=== PATIENT | female | born 1980 | race Caucasian/White ===

== ENCOUNTER 2017-10-27 20:04 | Emergency (ER) | payer OTHER ==
[~2017-10-27] VITALS: Ht 162.6 cm; Wt 107.0 kg
[~2017-10-27 20:04] MED LIST: HYDROCODON-ACE1 EA11 PO; NECON1 EACH PO; ZOFRAN ODT4 MG PO
[2017-10-27] MEDS ORDERED: AMBIEN 10 MG TA10 MG PO (20:15)
[2017-10-27] MEDS ORDERED: FLECAINIDE ACET50 M1 PO (20:15)
[2017-10-27] MEDS ORDERED: TOPROL XL25 MG PO (20:15)
[2017-10-27] MEDS ORDERED: OMEPRAZOLE40 MG PO (20:15)
[2017-10-27] MEDS ORDERED: PREDNISONE50 MG PO (20:53)
[2017-10-27] MEDS ORDERED: ROBITUSSIN100 MG/53 PO (20:53)
[2017-10-27] MEDS ORDERED: PROAIR HFA8.5 GM INH (20:53)
[2017-10-27 21:00] VITALS: BP 136/64
== END 2017-10-27 21:02 | disposition short-term general hospital (02) ==
LOC: M.ERS 20:04
DX: J34.89 Other specified disorders of nose and nasal sinuses (principal); K21.9 Gastro-esophageal reflux disease without esophagitis; Z90.49 Acquired absence of other specified parts of digestive tract

== ENCOUNTER 2017-12-21 21:31 | Emergency (ER) | payer OTHER ==
[~2017-12-21] VITALS: Ht 165.1 cm; Wt 107.0 kg
[~2017-12-21 21:31] MED LIST changes: +AMBIEN 10 MG TA10 MG PO; +FLECAINIDE ACET50 M1 PO; +OMEPRAZOLE40 MG PO; +PREDNISONE50 MG PO; +PROAIR HFA8.5 GM INH; +ROBITUSSIN100 MG/53 PO; +TOPROL XL25 MG PO
[2017-12-21] MEDS ORDERED: ZESTRIL5 MG (21:46)
[2017-12-21] MEDS ORDERED: NAPROSYN500 MG PO (22:22)
[2017-12-21 22:36] VITALS: BP 130/70
== END 2017-12-21 22:38 | disposition home or self-care (01) ==
LOC: M.ERS 21:31
DX: S93.492A Sprain of other ligament of left ankle, initial encounter (principal); S80.01XA Contusion of right knee, initial encounter; K21.9 Gastro-esophageal reflux disease without esophagitis; W10.8XXA Fall (on) (from) other stairs and steps, initial encounter; Y93.89 Activity, other specified; Y92.89 Other specified places as the place of occurrence of the external cause; Y99.8 Other external cause status

== ENCOUNTER 2018-06-08 19:52 | Emergency (ER) | payer OTHER ==
[~2018-06-08] VITALS: Ht 165.1 cm; Wt 107.0 kg
[~2018-06-08 19:52] MED LIST changes: +NAPROSYN500 MG PO; +ZESTRIL5 MG
[2018-06-08] MEDS ORDERED: AMBIEN 5 MG TABL5 M1 PO (20:15)
[2018-06-08] MEDS ORDERED: DICLOFENAC SODI75 MG PO (20:15)
[2018-06-08 20:27] LABS: URINE BILIRUBIN NEGATIVE (Negative); URINE BLOOD 2+ (Negative); URINE CLARITY CLEAR; URINE COLOR YELLOW; URINE GLUCOSE-RANDOM NEGATIVE (Negative); URINE KETONES NEGATIVE (Negative); URINE NITRITE-REFLEX NEGATIVE (Negative); URINE PROTEIN NEGATIVE (Negative); URINE SPECIFIC GRAVITY <= 1.005 (1.005-1.030); URINE UROBILINOGEN 0.2 E.U./dl (0.2-1.0)
[2018-06-08 20:28] LABS: URINE LEUKOCYTES-REFLEX 2+ (Negative)
[2018-06-08 20:33] LABS: ABSOLUTE BASOPHILS 0.1 thou/uL (0.0-0.2); ABSOLUTE EOSINOPHILS 0.2 thou/uL (0.0-0.7); ABSOLUTE MONOCYTES 0.7 thou/uL (0.0-1.2); ABSOLUTE NEUTROPHILS 4.3 thou/uL (1.6-8.1); BASOPHILS 0.9 %; EOSINOPHILS 2.7 %; HEMATOCRIT 37.5 % (37.0-47.0); HEMOGLOBIN 12.9 gm/dL (12.0-15.0); LYMPHOCYTES 27.6 %; MCH 31.6 pg (26.0-34.0); MCHC 34.5 g/dL (28.0-37.0); MCV 91.4 fL (80.0-100.0); MONOCYTES 9.3 %; MPV 6.7 fl. (7.2-11.1); NUCLEATED RBCS 0 /100WBC; PLATELET COUNT* 317 thou/uL (150-400); POLYS 59.5 %; RDW-CV 13.4 % (10.5-14.5); WBC 7.2 thou/uL (4.0-11.0)
[2018-06-08 20:41] LABS: SQUAMOUS >10 Many /LPF (0-3)
[2018-06-08 20:41] LABS: CALCIUM 8.7 mg/dL (8.5-10.1); POTASSIUM 3.8 mmol/L (3.5-5.1)
[2018-06-08 20:42] LABS: MUCUS None Seen strn/LPF (None Seen)
[2018-06-08 20:43] LABS: BACTERIA-REFLEX 1-9 Few /HPF (None Seen)
[2018-06-08 20:44] LABS: CASTS None Seen /LPF (None Seen); CRYSTALS None Seen /LPF (None Seen); URINE RBC 0-2 Rare /HPF (0-2)
[2018-06-08 20:46] LABS: ALBUMIN 3.3 g/dL (3.4-5.0); TOTAL BILIRUBIN 0.3 mg/dL (<0.1-1.0); TOTAL PROTEIN 6.9 g/dL (6.4-8.2)
[2018-06-08] MEDS ORDERED: CARAFATE 1 GM TA1 G1 PO (22:36)
[2018-06-08 22:59] VITALS: BP 132/79
[2018-06-08] MEDS ORDERED: BACTRIM DS TAB1 EACH PO (23:01)
--- NOTE | 2018-06-09 16:34 | EKG ---
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
== END 2018-06-08 23:00 | disposition home or self-care (01) ==
LOC: M.ERS 19:52
PROVIDERS: Nurse Practitioner Family
DX: N39.0 Urinary tract infection, site not specified (principal); K21.9 Gastro-esophageal reflux disease without esophagitis; M79.7 Fibromyalgia; Z90.49 Acquired absence of other specified parts of digestive tract; Z88.6 Allergy status to analgesic agent

== ENCOUNTER 2018-08-25 17:17 | Emergency (ER) | payer OTHER ==
[~2018-08-25] VITALS: Ht 165.1 cm; Wt 107.0 kg
[~2018-08-25 17:17] MED LIST changes: +AMBIEN 5 MG TABL5 M1 PO; +BACTRIM DS TAB1 EACH PO; +CARAFATE 1 GM TA1 G1 PO; +DICLOFENAC SODI75 MG PO
[2018-08-25 18:46] LABS: ABSOLUTE BASOPHILS 0.1 thou/uL (0.0-0.2); ABSOLUTE EOSINOPHILS 0.3 thou/uL (0.0-0.7); ABSOLUTE LYMPHOCYTES 1.9 thou/uL (0.8-5.3); ABSOLUTE MONOCYTES 0.7 thou/uL (0.0-1.2); ABSOLUTE NEUTROPHILS 4.1 thou/uL (1.6-8.1); BASOPHILS 1.4 %; EOSINOPHILS 3.9 %; HEMATOCRIT 39.4 % (37.0-47.0); HEMOGLOBIN 13.7 gm/dL (12.0-15.0); MCH 31.3 pg (26.0-34.0); MCHC 34.7 g/dL (28.0-37.0); MCV 90.3 fL (80.0-100.0); MONOCYTES 10.1 %; MPV 6.9 fl. (7.2-11.1); NUCLEATED RBCS 0 /100WBC; PLATELET COUNT* 341 thou/uL (150-400); POLYS 57.6 %; RBC 4.36 mil/uL (4.20-5.00); RDW-CV 13.3 % (10.5-14.5); WBC 7.1 thou/uL (4.0-11.0)
[2018-08-25 18:56] LABS: INR 0.9; PROTIME 9.7 Seconds (9.20-11.50)
[2018-08-25 19:02] LABS: ALBUMIN 3.4 g/dL (3.4-5.0); ALKALINE PHOSPHATASE 60 U/L (46-116); ANION GAP 10 mmol/L (7-16); BUN 14 mg/dL (7-18); CALCIUM 8.4 mg/dL (8.5-10.1); CHLORIDE 106 mmol/L (98-107); CO2 26 mmol/L (21-32); GLUCOSE 100 mg/dL (70-99); POTASSIUM 3.6 mmol/L (3.5-5.1); SGOT 13 U/L (15-37); SGPT 21 U/L (30-65); SODIUM 142 mmol/L (136-145); TOTAL BILIRUBIN 0.2 mg/dL (<0.1-1.0); TOTAL PROTEIN 6.9 g/dL (6.4-8.2); TROPONIN-I LEVEL <0.06 ng/mL (<0.06)
[2018-08-25 19:40] LABS: INFLUENZA A ANTIGEN None Detected (None Detect); INFLUENZA B ANTIGEN None Detected (None Detect)
[2018-08-25] MEDS ORDERED: HYDROCODONE-AP1 EAC6 PO (20:01)
[2018-08-25] MEDS ORDERED: MUCINEX600 MG PO (20:01)
[2018-08-25 20:13] VITALS: BP 122/72
--- NOTE | 2018-08-26 12:39 | EKG ---
[place] [address] ELECTROCARDIOGRAM REPORT Name: ELANA GA Room: [facility]#: [id number] Admission: 08/25/18 Attend Phys: Discharge: 08/25/18 Date of : [birth year] Report #: [id number] THIS REPORT FOR: //name// [facility] ED Test Date: 2018-08-25 Test Time: 17:27:55 Pat Name: ELANA GA Department: Room: Gender: F Hydramatic Mechanic: Demetrice MACK : 1980 Requested By: Chandler Kenyon Order Number: [id number] [id number] MD: Narinder Richey Measurements Intervals [place] Rate: 75 P: 46 HI: 127 QRS: -11 QRSD: 101 T: 62 QT: 401 QTc: 448 Interpretive Statements Sinus rhythm Baseline wander in lead(s) II,III,aVF,V4,V5,V6 Compared to ECG 06/08/2018 20:35:05 No significant changes Electronically Signed On 08-26-2018 12:39:06 CDT by Narinder Richey [email or web address] <ELECTRONICALLY SIGNED> By: Narinder Richey MD, [facility] 08/26/18 1239 1727 1727 Narinder Richey MD, [facility] /EPI
== END 2018-08-25 20:45 | disposition home or self-care (01) ==
LOC: M.ERS 17:17
PROVIDERS: Personal Emergency Response Attendant
DX: J06.9 Acute upper respiratory infection, unspecified (principal); R09.1 Pleurisy; R07.89 Other chest pain; K21.9 Gastro-esophageal reflux disease without esophagitis; M79.7 Fibromyalgia; Z90.49 Acquired absence of other specified parts of digestive tract; Z88.5 Allergy status to narcotic agent

== ENCOUNTER 2018-11-14 22:23 | Emergency (ER) | payer OTHER ==
[~2018-11-14] VITALS: Ht 165.1 cm; Wt 108.9 kg
[~2018-11-14 22:23] MED LIST changes: +HYDROCODONE-AP1 EAC6 PO; +MUCINEX600 MG PO
[2018-11-14 23:29] LABS: ABSOLUTE BASOPHILS 0.1 thou/uL (0.0-0.2); ABSOLUTE EOSINOPHILS 0.3 thou/uL (0.0-0.7); ABSOLUTE LYMPHOCYTES 2.2 thou/uL (0.8-5.3); ABSOLUTE MONOCYTES 0.7 thou/uL (0.0-1.2); ABSOLUTE NEUTROPHILS 2.7 thou/uL (1.6-8.1); BASOPHILS 0.9 %; EOSINOPHILS 5.4 %; HEMATOCRIT 36.9 % (37.0-47.0); HEMOGLOBIN 12.7 gm/dL (12.0-15.0); LYMPHOCYTES 37.3 %; MCH 31.5 pg (26.0-34.0); MCHC 34.5 g/dL (28.0-37.0); MCV 91.1 fL (80.0-100.0); MONOCYTES 11.2 %; MPV 7.4 fl. (7.2-11.1); NUCLEATED RBCS 0 /100WBC; PLATELET COUNT* 284 thou/uL (150-400); POLYS 45.2 %; RBC 4.05 mil/uL (4.20-5.00); RDW-CV 13.8 % (10.5-14.5); WBC 5.9 thou/uL (4.0-11.0)
[2018-11-14 23:35] LABS: ANION GAP 9 mmol/L (7-16); BUN 17 mg/dL (7-18); CALCIUM 8.7 mg/dL (8.5-10.1); CHLORIDE 105 mmol/L (98-107); CO2 27 mmol/L (21-32); CREATININE 1.1 mg/dL (0.6-1.3); GLUCOSE 96 mg/dL (70-99); POTASSIUM 3.7 mmol/L (3.5-5.1); SODIUM 141 mmol/L (136-145)
[2018-11-14 23:47] LABS: ALBUMIN 3.4 g/dL (3.4-5.0); ALKALINE PHOSPHATASE 48 U/L (46-116); SGOT 16 U/L (15-37); SGPT 29 U/L (30-65); TOTAL BILIRUBIN 0.3 mg/dL (<0.1-1.0); TOTAL PROTEIN 6.4 g/dL (6.4-8.2); TROPONIN-I LEVEL <0.06 ng/mL (<0.06)
[2018-11-15 01:10] VITALS: BP 133/67
--- NOTE | 2018-11-15 11:35 | EKG ---
[place] [address] ELECTROCARDIOGRAM REPORT Name: ELANA GA Room: [facility]#: [id number] Admission: 11/14/18 Attend Phys: Discharge: 11/15/18 Date of : [birth year] Report #: [id number] THIS REPORT FOR: //name// [facility] ED Test Date: 2018-11-14 Test Time: 22:32:08 Pat Name: ELANA GA Department: Room: Gender: F Information Receptionist: DUKE : 1980 Requested By: Mary Anne Jay Order Number: [id number] MD: Chucho Barraza Measurements Intervals [place] Rate: 66 P: 35 IA: 147 QRS: -8 QRSD: 119 T: 43 QT: 419 QTc: 439 Interpretive Statements Sinus rhythm Nonspecific intraventricular conduction delay Low voltage, precordial leads Compared to ECG 08/25/2018 17:27:55 Intraventricular conduction delay now present Low QRS voltage now present Electronically Signed On 11-15-2018 11:35:02 CDT by Chucho Barraza [email or web address] <ELECTRONICALLY SIGNED> By: Chucho Barraza MD, [facility] 11/15/18 1135 31 31 Chucho Barraza MD, [facility] /EPI
== END 2018-11-15 01:10 | disposition home or self-care (01) ==
LOC: M.ERS 22:23
PROVIDERS: Physician Assistant
DX: R07.89 Other chest pain (principal); K21.9 Gastro-esophageal reflux disease without esophagitis; M79.7 Fibromyalgia; Z88.5 Allergy status to narcotic agent; Z90.49 Acquired absence of other specified parts of digestive tract

== ENCOUNTER 2018-12-15 13:24 | Emergency (ER) | payer OTHER ==
[~2018-12-15] VITALS: Ht 165.1 cm; Wt 106.6 kg
[2018-12-15] MEDS ORDERED: KEFLEX500 M1 PO (14:18)
[2018-12-15] MEDS ORDERED: NORCO 5-325 TA1 EAC1 PO (14:18)
[2018-12-15 14:30] VITALS: BP 132/80
== END 2018-12-15 14:31 | disposition home or self-care (01) ==
LOC: M.ERS 13:24
DX: S90.812A Abrasion, left foot, initial encounter (principal); W22.09XA Striking against other stationary object, initial encounter; Y93.89 Activity, other specified; Y92.89 Other specified places as the place of occurrence of the external cause; Y99.8 Other external cause status; K21.9 Gastro-esophageal reflux disease without esophagitis; M79.7 Fibromyalgia; Z90.49 Acquired absence of other specified parts of digestive tract; Z88.5 Allergy status to narcotic agent

== ENCOUNTER → 2018-12-29 | Outpatient (CLI) | payer OTHER ==
[~2018-12-29] MED LIST changes: +KEFLEX500 M1 PO; +NORCO 5-325 TA1 EAC1 PO
[2018-12-29 08:06] LABS: ABSOLUTE EOSINOPHILS 0.1 thou/uL (0.0-0.7); ABSOLUTE LYMPHOCYTES 1.3 thou/uL (0.8-5.3); ABSOLUTE MONOCYTES 0.7 thou/uL (0.0-1.2); ABSOLUTE NEUTROPHILS 4.2 thou/uL (1.6-8.1); BASOPHILS 0.7 %; EOSINOPHILS 2.1 %; HEMATOCRIT 42.6 % (37.0-47.0); HEMOGLOBIN 14.8 gm/dL (12.0-15.0); LYMPHOCYTES 20.4 %; MCH 31.3 pg (26.0-34.0); MCHC 34.6 g/dL (28.0-37.0); MCV 90.4 fL (80.0-100.0); MONOCYTES 10.7 %; MPV 7.3 fl. (7.2-11.1); NUCLEATED RBCS 0 /100WBC; PLATELET COUNT* 323 thou/uL (150-400); POLYS 66.1 %; RBC 4.71 mil/uL (4.20-5.00); WBC 6.4 thou/uL (4.0-11.0)
[2018-12-29 08:37] LABS: ALBUMIN 3.9 g/dL (3.4-5.0); CREATININE 0.9 mg/dL (0.6-1.3); POTASSIUM 4.3 mmol/L (3.5-5.1); TOTAL BILIRUBIN 0.5 mg/dL (<0.1-1.0); TOTAL PROTEIN 7.7 g/dL (6.4-8.2)
== END ==
LOC: M.NUC 12-28 12:33
PROVIDERS: Internal Medicine Gastroenterology
DX: K30 Functional dyspepsia (principal); R14.0 Abdominal distension (gaseous)

== ENCOUNTER 2019-04-14 07:28 | Emergency (ER) | payer OTHER ==
[~2019-04-14] VITALS: Ht 162.6 cm; Wt 108.9 kg
[2019-04-14] MEDS ORDERED: LOPRESSOR50 MG PO (07:40)
[2019-04-14] MEDS ORDERED: AMOXICILLIN 50500 MG PO (08:00)
[2019-04-14 08:02] VITALS: BP 149/79
== END 2019-04-14 08:05 | disposition home or self-care (01) ==
LOC: M.ERS 07:28
DX: J40 Bronchitis, not specified as acute or chronic (principal); K21.9 Gastro-esophageal reflux disease without esophagitis; M79.7 Fibromyalgia; Z90.49 Acquired absence of other specified parts of digestive tract; Z88.5 Allergy status to narcotic agent

== ENCOUNTER 2019-04-20 19:23 | Emergency (ER) | payer OTHER ==
[~2019-04-20] VITALS: Ht 162.6 cm; Wt 108.9 kg
[~2019-04-20 19:23] MED LIST changes: +AMOXICILLIN 50500 MG PO; +LOPRESSOR50 MG PO
[2019-04-20 19:44] LABS: URINE BILIRUBIN NEGATIVE (Negative); URINE BLOOD NEGATIVE (Negative); URINE CLARITY CLEAR; URINE COLOR YELLOW; URINE GLUCOSE-RANDOM NEGATIVE (Negative); URINE KETONES NEGATIVE (Negative); URINE LEUKOCYTES-REFLEX NEGATIVE (Negative); URINE NITRITE-REFLEX NEGATIVE (Negative); URINE PROTEIN NEGATIVE (Negative); URINE SPECIFIC GRAVITY <= 1.005 (1.005-1.030); URINE UROBILINOGEN 0.2 E.U./dl (0.2-1.0)
[2019-04-20 20:21] LABS: ABSOLUTE BASOPHILS 0.1 thou/uL (0.0-0.2); ABSOLUTE EOSINOPHILS 0.2 thou/uL (0.0-0.7); ABSOLUTE LYMPHOCYTES 1.9 thou/uL (0.8-5.3); ABSOLUTE MONOCYTES 0.6 thou/uL (0.0-1.2); ABSOLUTE NEUTROPHILS 5.3 thou/uL (1.6-8.1); BASOPHILS 1.2 %; EOSINOPHILS 2.1 %; HEMATOCRIT 39.9 % (37.0-47.0); HEMOGLOBIN 13.8 gm/dL (12.0-15.0); LYMPHOCYTES 23.3 %; MCH 31.3 pg (26.0-34.0); MCHC 34.5 g/dL (28.0-37.0); MCV 90.7 fL (80.0-100.0); MONOCYTES 7.9 %; MPV 6.7 fl. (7.2-11.1); NUCLEATED RBCS 0 /100WBC; PLATELET COUNT* 336 thou/uL (150-400); POLYS 65.5 %; RDW-CV 13.3 % (10.5-14.5); WBC 8.1 thou/uL (4.0-11.0)
[2019-04-20 20:28] LABS: CALCIUM 8.6 mg/dL (8.5-10.1); CREATININE 0.9 mg/dL (0.6-1.3); POTASSIUM 3.9 mmol/L (3.5-5.1)
[2019-04-20 20:33] LABS: ALBUMIN 3.6 g/dL (3.4-5.0); TOTAL BILIRUBIN 0.3 mg/dL (<0.1-1.0); TOTAL PROTEIN 7.2 g/dL (6.4-8.2)
[2019-04-20] MEDS ORDERED: NORCO 5-325 TA1 EAC1 PO (21:03)
[2019-04-20 21:17] VITALS: BP 134/75
--- NOTE | 2019-04-21 13:55 | EKG ---
[place] [address] ELECTROCARDIOGRAM REPORT Name: ELANA GA Room: [facility]#: [id number] Admission: 04/20/19 Attend Phys: Discharge: 04/20/19 Date of : [birth year] Report #: [id number] THIS REPORT FOR: //name// [facility] ED Test Date: 2019-04-20 Test Time: 20:02:51 Pat Name: ELANA GA Department: Room: Gender: F Forensic Accountant: NICKY : 1980 Requested By: Mary Anne Jay Order Number: [id number] MD: Arthur Gaona Measurements Intervals [place] Rate: 83 P: 37 LA: 134 QRS: -14 QRSD: 112 T: 58 QT: 388 QTc: 456 Interpretive Statements Sinus rhythm Borderline intraventricular conduction delay Low voltage, precordial leads Compared to ECG 11/14/2018 22:32:08 No significant changes Electronically Signed On 04-21-2019 13:55:09 HOUSEHOLD COOK by Arthur Gaona [email or web address] <ELECTRONICALLY SIGNED> By: Arthur Gaona MD, [facility] 04/21/19 1355 01 01 Arthur Gaona MD, FACC /EPI
== END 2019-04-20 21:18 | disposition home or self-care (01) ==
LOC: M.ERS 19:23
PROVIDERS: Physician Assistant
DX: M54.9 Dorsalgia, unspecified (principal); K21.9 Gastro-esophageal reflux disease without esophagitis; M79.7 Fibromyalgia; Z90.49 Acquired absence of other specified parts of digestive tract

== ENCOUNTER 2019-07-06 18:49 | Emergency (ER) | payer OTHER ==
[~2019-07-06] VITALS: Ht 162.6 cm; Wt 107.0 kg
--- NOTE | ~2019-07-06 | EKG ---
[place] [address] ELECTROCARDIOGRAM REPORT Name: GAELANA Room: [facility]#: [id number] Admission: 07/06/19 Attend Phys: Discharge: 07/06/19 Date of : [birth year] Date of Service: 07/06/191950 Report #: [id number] THIS REPORT FOR: cc: Richardson Hawkins MD, Bruce D. MD Epiphany, Epiphany MD ~ THIS REPORT FOR: //name// [facility] ED Test Date: 2019-07-06 Test Time: 19:51:00 Pat Name: ELANA GA Department: Room: Gender: F Mental Tester: : 1980 Requested By: Manisha Villafana Order Number: [id number] MD: Measurements Intervals [place] Rate: 90 P: 52 MI: 128 QRS: -16 QRSD: 113 T: 54 QT: 390 QTc: 478 Interpretive Statements Sinus rhythm Probable left atrial enlargement Borderline intraventricular conduction delay Low voltage, precordial leads Borderline prolonged QT interval Compared to ECG 04/20/2019 20:02:51 No significant changes [email or web address] By: 50 50 Epiphany EpiphanyMD /YANNICK
[2019-07-06 19:25] LABS: HEMATOCRIT 41.6 % (37.0-47.0); HEMOGLOBIN 14.8 gm/dL (12.0-15.0); MCH 31.9 pg (26.0-34.0); MCHC 35.5 g/dL (28.0-37.0); NUCLEATED RBCS 0 /100WBC; PLATELET COUNT* 311 thou/uL (150-400); RBC 4.62 mil/uL (4.20-5.00); RDW-CV 13.1 % (10.5-14.5); WBC 8.2 thou/uL (4.0-11.0)
[2019-07-06 19:40] LABS: CALCIUM 7.7 mg/dL (8.5-10.1); POTASSIUM 4.1 mmol/L (3.5-5.1)
[2019-07-06 19:44] LABS: ALBUMIN 3.7 g/dL (3.4-5.0); TOTAL BILIRUBIN 0.8 mg/dL (<0.1-1.0); TOTAL PROTEIN 7.4 g/dL (6.4-8.2)
[2019-07-06 20:24] LABS: ABSOLUTE EOSINOPHILS 0.1 thou/uL (0.0-0.7); ABSOLUTE LYMPHOCYTES 0.6 thou/uL (0.8-5.3); ABSOLUTE MONOCYTES 0.3 thou/uL (0.0-1.2); ABSOLUTE NEUTROPHILS 7.2 thou/uL (1.6-8.1); PLATELET ESTIMATE ADEQUATE
[2019-07-06 20:27] LABS: URINE BILIRUBIN NEGATIVE (Negative); URINE BLOOD NEGATIVE (Negative); URINE CLARITY CLEAR; URINE COLOR YELLOW; URINE GLUCOSE-RANDOM NEGATIVE (Negative); URINE KETONES NEGATIVE (Negative); URINE LEUKOCYTES-REFLEX NEGATIVE (Negative); URINE NITRITE-REFLEX NEGATIVE (Negative); URINE PROTEIN NEGATIVE (Negative); URINE SPECIFIC GRAVITY >= 1.030 (1.005-1.030); URINE UROBILINOGEN 0.2 E.U./dl (0.2-1.0)
[2019-07-06 20:49] LABS: AMP/METHAMP Negative (Negative); BARBITURATES Negative (Negative); BENZODIAZEPINES Negative (Negative); COCAINE Negative (Negative); METHADONE Negative (Negative); OPIATES Negative (Negative); PCP Negative (Negative); THC Negative (Negative)
[2019-07-06 20:54] LABS: INFLUENZA A ANTIGEN Negative (Negative); INFLUENZA B ANTIGEN Negative (Negative)
[2019-07-06 22:20] VITALS: BP 117/54
== END 2019-07-06 22:21 | disposition home or self-care (01) ==
LOC: M.ERS 18:49
PROVIDERS: Nurse Practitioner Family; Personal Emergency Response Attendant
DX: R10.84 Generalized abdominal pain (principal); R11.2 Nausea with vomiting, unspecified; K21.9 Gastro-esophageal reflux disease without esophagitis; M79.7 Fibromyalgia; Z90.49 Acquired absence of other specified parts of digestive tract

== ENCOUNTER 2019-07-28 19:09 | Emergency (ER) | payer OTHER ==
[~2019-07-28] VITALS: Ht 162.6 cm; Wt 107.0 kg
[2019-07-28 19:56] LABS: INFLUENZA A ANTIGEN Negative (Negative); INFLUENZA B ANTIGEN Negative (Negative)
[2019-07-28] MEDS ORDERED: TESSALON PERLE100 M1 PO (21:28)
[2019-07-28 21:44] VITALS: BP 125/78
== END 2019-07-28 21:45 | disposition home or self-care (01) ==
LOC: M.ERS 19:09
PROVIDERS: Physician Assistant
DX: J06.9 Acute upper respiratory infection, unspecified (principal); K21.9 Gastro-esophageal reflux disease without esophagitis; M79.7 Fibromyalgia; Z90.49 Acquired absence of other specified parts of digestive tract

== ENCOUNTER 2019-11-01 06:50 | Observation (INO) | payer OTHER ==
[2019-10-24 10:56] LABS: HEMATOCRIT 42.1 % (37.0-47.0); HEMOGLOBIN 14.3 gm/dL (12.0-15.0); MCH 31.4 pg (26.0-34.0); MCHC 33.9 g/dL (28.0-37.0); MCV 92.7 fL (80.0-100.0); MPV 7.2 fl. (7.2-11.1); RBC 4.54 mil/uL (4.20-5.00); RDW-CV 13.5 % (10.5-14.5); WBC 7.3 thou/uL (4.0-11.0)
[2019-10-24 11:06] LABS: URINE BILIRUBIN NEGATIVE (Negative); URINE BLOOD NEGATIVE (Negative); URINE CLARITY CLEAR; URINE COLOR YELLOW; URINE GLUCOSE-RANDOM NEGATIVE (Negative); URINE KETONES NEGATIVE (Negative); URINE LEUKOCYTES-REFLEX TRACE (Negative); URINE NITRITE-REFLEX NEGATIVE (Negative); URINE PROTEIN NEGATIVE (Negative); URINE SPECIFIC GRAVITY 1.015 (1.005-1.030); URINE UROBILINOGEN 0.2 E.U./dl (0.2-1.0)
[2019-10-24 11:07] LABS: PROTIME 10.4 Seconds (9.20-11.50)
[2019-10-24 11:13] LABS: ALBUMIN 3.8 g/dL (3.4-5.0); CALCIUM 8.9 mg/dL (8.5-10.1); POTASSIUM 4.2 mmol/L (3.5-5.1); TOTAL BILIRUBIN 0.5 mg/dL (<0.1-1.0); TOTAL PROTEIN 7.4 g/dL (6.4-8.2)
[2019-10-24 11:22] LABS: BACTERIA-REFLEX None Seen /HPF (None Seen); CASTS None Seen /LPF (None Seen); CRYSTALS None Seen /LPF (None Seen); MUCUS None Seen strn/LPF (None Seen); SQUAMOUS 4-10 Moderate /LPF (0-3); URINE RBC 0-2 Rare /HPF (0-2); URINE WBC-REFLEX 0-5 Rare /HPF (0-5)
--- NOTE | 2019-10-24 16:28 | EKG ---
[place] [address] ELECTROCARDIOGRAM REPORT Name: ELANA GA Room: [facility].#: [id number] Admission: Attend Phys: Mkiel Gutierrez Discharge: Date of : 80 Date of Service: 10/24/19 1049 Report #: [id number] THIS REPORT FOR: //name// 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
[~2019-11-01] VITALS: Ht 165.1 cm; Wt 113.4 kg
[~2019-11-01 06:50] MED LIST changes: +TESSALON PERLE100 M1 PO
[2019-11-01 09:30] VITALS: BP 162/96
[2019-11-01 16:00] VITALS: BP 143/83
[2019-11-01 17:04] VITALS: BP 143/77
--- NOTE | 2019-11-01 17:17 | NUR ---
PT REMAINED ALERT AND ORIENTED. PT TOLERATING FOOD AND LIQUIDS AT THIS TIME. PT C/O PAIN, MEDS GIVEN ORDERED. FALL RISK PRECAUTIONS IN PLACE. HOURLY ROUNDING COMPLETED. WILL CONTINUE TO MONITOR.
[2019-11-01 19:50] VITALS: BP 149/63
[2019-11-02] VITALS: BP 122/54
[2019-11-02 04:00] VITALS: BP 152/83
--- NOTE | 2019-11-02 04:30 | NUR ---
ASSUMED CARE OF PT 11/01/19 AT APPROX 1915. PT A&OX4, ON 3L NC, VSS, CPM MONITORED. PAIN MEDS RQUESTED AND GIVEN ORDERED. ASSESSMENTS AND HOURLY ROUNDINGS COMPLETED. WILL CONTINUE TO MONITOR.
[2019-11-02 07:30] VITALS: BP 158/90
[2019-11-02 07:55] LABS: HEMOGLOBIN 13.5 gm/dL (12.0-15.0)
[2019-11-02 16:00] VITALS: BP 158/95
--- NOTE | 2019-11-02 17:01 | NUR ---
PATIENT DID NOT FEEL COMFORTABLE GOING HOME TODAY DUE TO INCREASED POST OP PAIN. HER PAIN HAS BEEN AN AVERAGE OF 5/10 ON THE PAIN SCALE SHE IS TAKING PO MEDS AT THIS TIME. SHE HAS BEEN WORKING WITH PT AND WALKED TO THE GYM AND PRACTICED ON THE STAIRS AND TOLERATED WELL. POLAR CARE IS IN PLACE AND THE SCDS ALSO. SHE IS DRINKING PLENTY OF FLUIDS AND VOIDING IN THE BATHROOM. SHE STATES THAT SHE IS FEELING BETTER AND IS LOOKING FORWARD TO GOING HOME TOMORROW.
[2019-11-02 20:00] VITALS: BP 148/68
[2019-11-02 23:30] VITALS: BP 136/82
[2019-11-03 04:31] LABS: HEMATOCRIT 37.8 % (37.0-47.0); HEMOGLOBIN 13.1 gm/dL (12.0-15.0)
--- NOTE | 2019-11-03 06:19 | NUR ---
Alert and oriented x 4. Rt knee dressing dry and intact w/polarcare in place. She is up with stand by assist with walker to the bathroom. She has had a high pain level. I did give pain meds every 2 hours. oxycodone alternating with percocet. She has done much better pain is at 2 right now. She did get in CPM x 1 at bedtime.
[2019-11-03 07:30] VITALS: BP 154/75
--- NOTE | 2019-11-03 09:54 | NUR ---
RECIEVED O.T. ORDERS. WILL DEFER TO P.T. AT THIS TIME. PLEASE ORDER FURTHER O.T. SERIVCES IF NEEDED.
[2019-11-03] MEDS ORDERED: XARELTO10 M1 PO (11:18)
[2019-11-03 11:20] VITALS: BP 154/75
[2019-11-03] MEDS ORDERED: PERCOCET 5-3251 EACH PO (11:20)
--- NOTE | 2019-11-03 12:17 | NUR ---
ASSUMED CARE OF PATIENT AT APPROX 0730. ALERT AND ORIENTED X4. ASSESSMENT COMPLETED AND CHARTED. VSS ON ROOM AIR. PAIN WELL MANAGED WITH ORAL OXY IR AND PERCOCET. PATIENT UP WITH ASSIST TO USE THE BATHROOM WITH GAIT BELT AND WALKER. CPM ORDERED. POLAR PACK IN PLACE. PATIENT WORKED WELL WITH THERAPIES AND PROGRESSED TOWARD GOALS. PATIENT DISCHARGED AT 1155 WITH ALL PERSONAL BELONGINGS, PRESCRIPTIONS AND DISCHARGE INFORMATION.
--- NOTE | 2019-11-03 14:08 | NUR ---
Pt discharged to homem faxed HH referral and orders to [facility].
--- NOTE | 2019-11-07 08:57 | OP ---
[facility] [address] [place] [address] OPERATIVE REPORT Name: ELANA GA Room: [address] Kenan Baker#: [id number] Admission: 11/01/19 Attend Phys: Navdeep Magana Discharge: 11/03/19 Date of : 80 Report #: [id number] THIS REPORT FOR: //name// cc: Richardson Hawkins MD, Bruce D. MD ~ THIS REPORT FOR: //name// CC: Richardson Gutierrez DATE OF SERVICE: 11/01/2019 PREOPERATIVE DIAGNOSIS: Right knee medial compartment osteoarthritis. POSTOPERATIVE DIAGNOSIS: Right knee medial compartment osteoarthritis. PROCEDURE: Right knee unicompartmental knee arthroplasty with Navio. SURGEON: Chiki Bassett II, D.O. HOME HEALTH REGISTERED NURSE: HARSH Gonzalez. ANESTHESIA: General endotracheal. ESTIMATED BLOOD LOSS: 50 mL. ANTIBIOTICS: Ancef preoperatively. DRAINS: None. COMPLICATIONS: None. CONDITION OF THE PATIENT: Stable to recovery room. IMPLANTS: Listed in the operative record and progress note. BRIEF HISTORY: The patient was seen in the preoperative area. Preoperative H and P was performed. Site was marked, questions were answered. Risks and benefits were discussed with the patient in detail about the surgery. The patient wished to proceed assuming all risks. DESCRIPTION OF PROCEDURE: The patient was taken to the operative suite, placed supine on the operative table, and given appropriate anesthesia. A well-padded tourniquet was applied to the upper thigh, which was inflated to 300 mmHg after gravity exsanguination. The operative knee was sterilely [place] [address] OPERATIVE REPORT Name: SCOTT GACynthia CARDONA Room: [address] Kenan Baker#: [id number] Admission: 11/01/19 Attend Phys: Navdeep Magana Discharge: 11/03/19 Date of : 80 Report #: [id number] Surgery began by a slightly medial incision around the parapatellar region. This was carried down to the subcutaneous tissues. A shortened medial parapatellar incision was made to the superior aspect of the patella down to the tibial tubercle. Retractor was then performed on the patella and a small medial release was performed of the capsule to allow access. Excess osteophytes were removed from around the femur and tibia. The alignment pins were then placed for the CreativeLiveio robotic assistance, trackers were applied, and the knee was registered through the software. The medial compartment was then mapped utilizing the planar with the femur and tibia. It was shown to be an intact ACL. There was no evidence of significant chondromalacia in the lateral compartment or other patellofemoral region. There was severe osteoarthritis noted on the medial portion. After it was mapped, the software was registered and the implant size was selected. Balancing was performed and the robotic handpiece was activated. Reaming was then performed of the femur and tibia in appropriate fashion with the Navio software. The edges were then smoothed using the rasp. The trials were then applied for the femur and tibia and the 8-mm spacer was utilized showing excellent fit and fill and excellent stability on the independent tracking and evaluation of the Navio software as well as with visualization. These trials were removed. The peg holes were drilled for the tibia. Cement was mixed and applied to the final implants and these were malleted into position. The 9-mm spacer was utilized for compression until the cement had cured, excess cement was removed using [place] and osteotome. This was trialed and showed to be slightly tight on the Navio software, so the 8-mm polyethylene was selected. This was then malleted into position and shown to have excellent fit and fill and excellent stability of the knee through all range of motion. The tourniquet was then deflated. Hemostasis was controlled utilizing electrocautery. Irrigation was performed of the knee to remove all excess bone and cartilage debris. Pain cocktail was injected. PRP gel was sprayed through internal aspects of the knee. The capsule was closed with #2 FiberWire and #1 Vicryl in [id number] fashion. Skin was closed with 2-0 Vicryl and running 3-0 Monocryl. Dermabond and sterile dressing applied. Guille wrap and PolarCare applied. The patient was transported to recovery room in stable condition. Counts were correct throughout the procedure. <ELECTRONICALLY SIGNED> By: Chiki Bassett II, DO 11/07/19 0857 2128 2224Rdavid Bassett II, DO /nt
== END 2019-11-03 11:55 | disposition home health service (06) ==
LOC: M.PRE 06:50 → M.TBA 09:02 → EDSTATUS 11:04 → M.PRE 11:16 → M.3W 14:55
PROVIDERS: Orthopaedic Surgery; ADMIT Internal Medicine; ATTEND Internal Medicine
DX: Z03.818 Encounter for observation for suspected exposure to other biological agents ruled out (principal); M17.11 Unilateral primary osteoarthritis, right knee; K21.9 Gastro-esophageal reflux disease without esophagitis; E66.01 Morbid (severe) obesity due to excess calories

== ENCOUNTER 2020-01-31 10:30 | Emergency (ER) | payer OTHER ==
[~2020-01-31] VITALS: Ht 162.6 cm; Wt 113.4 kg
[~2020-01-31 10:30] MED LIST changes: +PERCOCET 5-3251 EACH PO; +XARELTO10 M1 PO
[2020-01-31] MEDS ORDERED: LODINE400 M1 PO (10:42)
[2020-01-31] MEDS ORDERED: FLEXERIL PO (10:42)
[2020-01-31] MEDS ORDERED: NORCO 5-325 TA1 EAC2 PO (11:58)
[2020-01-31 12:13] VITALS: BP 146/73
== END 2020-01-31 12:13 | disposition home or self-care (01) ==
LOC: M.ERS 10:30
DX: S86.912A Strain of unspecified muscle(s) and tendon(s) at lower leg level, left leg, initial encounter (principal); K21.9 Gastro-esophageal reflux disease without esophagitis; M79.7 Fibromyalgia; Z90.49 Acquired absence of other specified parts of digestive tract; X50.1XXA Overexertion from prolonged static or awkward postures, initial encounter; Y93.89 Activity, other specified; Y92.89 Other specified places as the place of occurrence of the external cause; Y99.9 Unspecified external cause status

== ENCOUNTER 2020-04-29 10:45 | Emergency (ER) | payer OTHER ==
[~2020-04-29] VITALS: Ht 162.6 cm; Wt 108.9 kg
[~2020-04-29 10:45] MED LIST changes: +FLEXERIL PO; +LODINE400 M1 PO; +NORCO 5-325 TA1 EAC2 PO
[2020-04-29 11:40] VITALS: BP 148/73
== END 2020-04-29 11:41 | disposition home or self-care (01) ==
LOC: M.ERS 10:45
DX: B34.9 Viral infection, unspecified (principal); Z20.828 Contact with and (suspected) exposure to other viral communicable diseases; M79.7 Fibromyalgia; K21.9 Gastro-esophageal reflux disease without esophagitis; Z90.49 Acquired absence of other specified parts of digestive tract

== ENCOUNTER → 2020-05-17 | Outpatient (CLI) | payer OTHER | LOC: M.LAB 09:31 | PROVIDERS: ATTEND Orthopaedic Surgery | DX: Z01.812 Encounter for preprocedural laboratory examination (principal); Z20.828 Contact with and (suspected) exposure to other viral communicable diseases ==

== ENCOUNTER 2020-06-12 16:24 | Emergency (ER) | payer OTHER ==
[~2020-06-12] VITALS: Ht 162.6 cm; Wt 117.9 kg
[2020-06-12] MEDS ORDERED: BUPROPION HCL100 MG PO (17:01)
[2020-06-12] MEDS ORDERED: SINGULAIR 10 MG10 MG PO (17:01)
[2020-06-12] MEDS ORDERED: BUSPIRONE HCL10 MG PO (17:01)
[2020-06-12 17:29] LABS: URINE BILIRUBIN NEGATIVE (Negative); URINE BLOOD NEGATIVE (Negative); URINE CLARITY CLEAR; URINE COLOR YELLOW; URINE GLUCOSE-RANDOM NEGATIVE (Negative); URINE KETONES NEGATIVE (Negative); URINE LEUKOCYTES-REFLEX 1+ (Negative); URINE NITRITE-REFLEX NEGATIVE (Negative); URINE PROTEIN NEGATIVE (Negative); URINE UROBILINOGEN 0.2 E.U./dl (0.2-1.0)
[2020-06-12 17:38] LABS: BACTERIA-REFLEX 1-9 Few /HPF (None Seen); MUCUS None Seen strn/LPF (None Seen); SQUAMOUS >10 Many /LPF (0-3); URINE WBC-REFLEX 6-15 Few /HPF (0-5)
[2020-06-12 17:39] LABS: CASTS None Seen /LPF (None Seen); CRYSTALS None Seen /LPF (None Seen); URINE RBC None Seen /HPF (0-2)
[2020-06-12 18:03] LABS: INFLUENZA A ANTIGEN Negative (Negative); INFLUENZA B ANTIGEN Negative (Negative)
[2020-06-12] MEDS ORDERED: IBU800 MG PO (18:22)
[2020-06-12] MEDS ORDERED: BACTRIM DS TAB1 EAC1 PO (18:22)
[2020-06-12] MEDS ORDERED: FLONASE 0.05%50 MCG NASAL (18:22)
[2020-06-12 18:29] VITALS: BP 141/70
== END 2020-06-12 18:30 | disposition home or self-care (01) ==
LOC: M.ERS 16:24
PROVIDERS: Nurse Practitioner Psychiatric/Mental Health
DX: R51.9 Headache, unspecified (principal); R82.90 Unspecified abnormal findings in urine; K21.9 Gastro-esophageal reflux disease without esophagitis; Z90.49 Acquired absence of other specified parts of digestive tract; Z79.899 Other long term (current) drug therapy; Z20.828 Contact with and (suspected) exposure to other viral communicable diseases

== ENCOUNTER 2021-03-01 11:01 | Emergency (ER) | payer OTHER ==
[~2021-03-01] VITALS: Ht 165.1 cm; Wt 119.3 kg
[~2021-03-01 11:01] MED LIST changes: +BACTRIM DS TAB1 EAC1 PO; +BUPROPION HCL100 MG PO; +BUSPIRONE HCL10 MG PO; +FLONASE 0.05%50 MCG NASAL; +IBU800 MG PO; +SINGULAIR 10 MG10 MG PO
[2021-03-01] MEDS ORDERED: ESCITALOPRA5 MG/5 ML PO (11:16)
[2021-03-01] MEDS ORDERED: HYDROCODON-ACE1 EAC7 PO (11:17)
[2021-03-01] MEDS ORDERED: MEDROLDOSEPACK PO (11:22)
[2021-03-01 11:34] VITALS: BP 167/82
== END 2021-03-01 11:36 | disposition home or self-care (01) ==
LOC: M.ERS 11:01
DX: S86.012A Strain of left Achilles tendon, initial encounter (principal); Z90.49 Acquired absence of other specified parts of digestive tract; M79.7 Fibromyalgia; K21.9 Gastro-esophageal reflux disease without esophagitis; Z79.899 Other long term (current) drug therapy; Z96.651 Presence of right artificial knee joint; X50.1XXA Overexertion from prolonged static or awkward postures, initial encounter; Y93.01 Activity, walking, marching and hiking; Y92.89 Other specified places as the place of occurrence of the external cause; Y99.8 Other external cause status

== ENCOUNTER 2021-04-09 10:12 | Emergency (ER) | payer OTHER ==
[~2021-04-09] VITALS: Ht 165.1 cm; Wt 119.3 kg
[~2021-04-09 10:12] MED LIST changes: +ESCITALOPRA5 MG/5 ML PO; +HYDROCODON-ACE1 EAC7 PO; +MEDROLDOSEPACK PO
[2021-04-09] MEDS ORDERED: LEXAPRO 10 MG T10 M1 PO (10:20)
[2021-04-09] MEDS ORDERED: PERCOCET 10-321 EAC1 PO (10:21)
[2021-04-09 11:02] LABS: ABSOLUTE BASOPHILS 0.1 thou/uL (0.0-0.2); ABSOLUTE EOSINOPHILS 0.2 thou/uL (0.0-0.7); ABSOLUTE LYMPHOCYTES 1.2 thou/uL (0.8-5.3); ABSOLUTE MONOCYTES 0.6 thou/uL (0.0-1.2); ABSOLUTE NEUTROPHILS 4.7 thou/uL (1.6-8.1); BASOPHILS 1.1 %; EOSINOPHILS 2.6 %; HEMATOCRIT 40.4 % (37.0-47.0); HEMOGLOBIN 13.7 gm/dL (12.0-15.0); LYMPHOCYTES 17.9 %; MCHC 33.8 g/dL (28.0-37.0); MCV 88.8 fL (80.0-100.0); MONOCYTES 8.8 %; MPV 6.5 fl. (7.2-11.1); NUCLEATED RBCS 0 /100WBC; PLATELET COUNT* 353 thou/uL (150-400); POLYS 69.6 %; RBC 4.55 mil/uL (4.20-5.00); RDW-CV 13.7 % (10.5-14.5); WBC 6.7 thou/uL (4.0-11.0)
[2021-04-09 11:14] LABS: CALCIUM 8.8 mg/dL (8.5-10.1); CREATININE 0.9 mg/dL (0.6-1.3); POTASSIUM 4.3 mmol/L (3.5-5.1)
[2021-04-09 11:24] LABS: ALBUMIN 3.5 g/dL (3.4-5.0); MAGNESIUM 1.8 mg/dL (1.8-2.4); TOTAL BILIRUBIN 0.3 mg/dL (<0.1-1.0); TOTAL PROTEIN 7.1 g/dL (6.4-8.2)
[2021-04-09 13:02] VITALS: BP 139/81
--- NOTE | 2021-04-09 14:51 | EKG ---
[place] [address] ELECTROCARDIOGRAM REPORT Name: ELANA GA Room: 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: : 1980 Requested By: Magno Santana Order Number: [id number] MD: Narinder Richey Measurements Intervals [place] Rate: 76 P: 40 NC: 171 QRS: -7 QRSD: 100 T: 56 QT: 410 QTc: 462 Interpretive Statements Sinus rhythm LAE, consider biatrial enlargement Compared to ECG 10/24/2019 10:49:50 No significant changes Electronically Signed On 04-09-2021 14:51:25 INDUSTRIAL MAINTENANCE TECH by Narinder Richey [email or web address] <ELECTRONICALLY SIGNED> By: Narinder Richey MD, [facility] 04/09/21 1451 1019 1019 Narinder Richey MD, [facility] /EPI
== END 2021-04-09 13:05 | disposition home or self-care (01) ==
LOC: M.ERS 10:12
PROVIDERS: Family Medicine
DX: R07.89 Other chest pain (principal); K21.9 Gastro-esophageal reflux disease without esophagitis; Z90.49 Acquired absence of other specified parts of digestive tract; Z79.899 Other long term (current) drug therapy